=== PATIENT | female | born 1945 | race Caucasian/White ===

== ENCOUNTER 2016-07-01 06:03 | Day surgery (SDC) | payer OTHER ==
[2016-06-24 12:24] VITALS: BMI 29.2
[2016-07-01] MEDS ORDERED: FLURBIPROFEN 0.03% OPHTH SOLN 2.5 ML BOTTLE ONE (07:03)
[2016-07-01] MEDS ORDERED: CYCLOPENTOLATE HCL 1% OPHTH SOLN 2 ML BOTTLE ONE (07:03)
[2016-07-01] MEDS ORDERED: TROPICAMIDE 1% OPHTH SOLN 15 ML BOTTLE ONE (07:03)
[2016-07-01] MEDS ORDERED: PHENYLEPHRINE 2.5% OPHTH SOLN 15 ML BOTTLE ONE (07:03)
[2016-07-01] MEDS ORDERED: GENTAMICIN SULFATE 0.3% OPHTHALMIC (EYE DROPS) 5ML BOTTLE ONE (07:03)
[2016-07-01] MEDS: TROPICAMIDE 1% OPHTH SOLN 15 ML BOTTLE OD SCH ×5 (07:15→07:35)
[2016-07-01] MEDS: GENTAMICIN SULFATE 0.3% OPHTHALMIC (EYE DROPS) 5ML BOTTLE OD SCH ×5 (07:15→07:35)
[2016-07-01] MEDS: CYCLOPENTOLATE HCL 1% OPHTH SOLN 2 ML BOTTLE OD SCH ×5 (07:15→07:35)
[2016-07-01] MEDS: FLURBIPROFEN 0.03% OPHTH SOLN 2.5 ML BOTTLE OD SCH ×4 (07:15→07:35)
[2016-07-01] MEDS: PHENYLEPHRINE 2.5% OPHTH SOLN 15 ML BOTTLE OD SCH ×5 (07:15→07:35)
[2016-07-01] MEDS ORDERED: ACETYLCHOLINE 1:100 INTRA-OCUL 20 MG/2 ML KIT ONE (07:26)
[2016-07-01] MEDS ORDERED: BACITRACIN/POLYMYXIN OPH OINT 3.5 GM TUBE ONE (07:26)
[2016-07-01] MEDS ORDERED: BUPIVACAINE HCL/PF 0.5% (5MG/ML) 10 ML VIAL ONE (07:26)
[2016-07-01] MEDS ORDERED: LIDOCAINE HCL 2% JELLY 10 ML CARTRIDGE ONE (07:26)
[2016-07-01] MEDS ORDERED: POVIDONE-IODINE 5% OPHTHALMIC PREP 30 ML SOLUTION ONE (07:36)
[2016-07-01] MEDS ORDERED: MIDAZOLAM HCL 2 MG/2 ML SINGLE DOSE VIAL ONE (08:03)
[2016-07-01] MEDS ORDERED: PROPOFOL 20 ML ONE (08:18)
[2016-07-01] MEDS ORDERED: ACETAMINOPHEN 325 MG TABLET (FP) PO PRN (09:03)
[2016-07-01 10:16] VITALS: TEMP 98.1
[2016-07-01 10:19] VITALS: BP 148/84; PULSE 81
--- NOTE | 2016-07-01 19:53 | OP ---
DATE OF OPERATION: 07/01/2016 PREOPERATIVE DIAGNOSIS: Cataract, right eye. POSTOPERATIVE DIAGNOSIS: Cataract, right eye. PROCEDURE: Cataract extraction via phacoemulsification with insertion of posterior chamber lens implant, right eye. SURGEON: Rich Dial M.D. EXCEL DEVELOPER: Bindu Grove M.D. ANESTHESIA: Regional with sedation. COMPLICATIONS: None. ESTIMATED BLOOD LOSS: Less than 1 mL. SPECIMENS: None. PROCEDURE: The patient is identified in the holding area after all risks, benefits, and alternatives were explained to the patient, informed consent was obtained. The right eye was marked with a marking pen. The patient then entered the operating room on an eye stretcher. After formal timeout was performed, a 3 mL injection of equal parts 2% lidocaine with epinephrine and 0.5% Marcaine was given around the right eye. The right eye was then prepped and draped in the usual sterile fashion. Eyelid speculum was placed beneath the eyelids of the right eye. A 15-degree blade was used to make a supratemporal paracentesis incision. Viscoelastic was injected into the anterior chamber, and a 2.2-mm keratome blade was then used to make an infratemporal incision, and a bent cystotome and Utrata forceps were then used to make a 360-degree continuous curvilinear capsulorrhexis. Hydrodissection was performed with balanced saline solution on the cannula. Phacoemulsification was then introduced, disassembled and removed the nucleus in its entirety. Irrigation/aspiration was then used to remove any remaining cortical material from the eye. The capsular bag was then refilled using viscoelastic. An Martin model [id number] with a power of 20.0 diopters, serial number [id number] was inspected and found to be defect free and injected into the capsular bag. Irrigation/aspiration was then used to remove any remaining viscoelastic from the eye. The anterior chamber was then reformed using balanced saline solution. Intracameral injections of Miochol and Miostat were then given. All wounds were hydrated and FOUND to be watertight. The anterior chamber was deep. There was a red reflex. The pressure was adequate, and the lens was perfectly centered in the capsular bag. Then topical antibiotic eyedrops and ointment was then applied to the right eye. The eyelid speculum was then removed from the right eye. The right eye was then patched and shielded. The patient tolerated the procedure well and left the operating room in stable condition to follow up in the eye clinic the next morning at 9 o'clock. RICH DIAL M.D. [place]LL/[id number]
== END 2016-07-01 10:00 | disposition home or self-care (01) ==
LOC: FASU 06:03
PROVIDERS: ATTEND Ophthalmology
PROC: 08RJ3JZ Replacement of Right Lens with Synthetic Substitute, Percutaneous Approach (ICD-10-PCS; principal; 2016-07-01 08:35)
DX: H26.8 Other specified cataract (principal)